=== PATIENT | male | born 1980 | race Caucasian/White ===

== ENCOUNTER 2022-07-04 09:28 | Emergency (ER) | payer BC, SELFPAY ==
--- NOTE | 2022-07-04 10:26 | EXP.UTC ---
Discharge Plan Disposition Patient Disposition: Home, Self-Care Condition: Good Prescriptions Prescriptions: New benzonatate [benzonatate] 100 mg capsule 100 mg PO TIDP PRN (Reason: Cough) Qty: 30 0RF methylprednisolone 4 mg Tablets,Dose Pack 4 mg PO DIRECTED Qty: 21 0RF cefdinir 300 mg capsule 300 mg PO BID Qty: 20 0RF mupirocin 2 % ointment 1 applic topical TID 7 Days Qty: 15 0RF Referrals Follow up/Referrals: Hari Pacheco [Primary Care Provider] - See instructions Activity Restrictions/Add. Instructions Additional Instructions/Restrictions: Drink plenty of fluids. Take tylenol or ibuprofen for pain or fever. Take the medications as directed. Follow up with your regular doctor. GO TO THE ER FOR ANY WORSENING SYMPTOMS Keep the wound clean and dry. Clinical Impressions Clinical Impression: Pharyngitis, Abrasion of face, Cervical lymphadenopathy Stand Alone Forms Stand Alone Forms: Work/School Release Discharge ED Provider: Dimitri Carvalho [facility] General Stated complaint: ao cinnamon grinder to side of face throat pain Time Seen by Provider: 07/04/22 10:25 History of Present Illness Provider Complaint: He states that he has had a sore throat for the past 3 days. He states that the has swollen lymph nodes on the right side of his neck that hurt when he turns his head. He has an abrasion on his face from an injury with a cinnamon grinder 5 days ago. Related Data Previous Rx's Medication Instructions Recorded benzonatate 100 mg capsule 100 mg PO TIDP PRN Cough #30 caps 07/04/22 cefdinir 300 mg capsule 300 mg PO BID #20 caps 07/04/22 methylprednisolone 4 mg tablets in 4 mg PO DIRECTED #21 tabs 07/04/22 a dose pack mupirocin 2 % topical ointment 1 applic topical TID 7 days #15 07/04/22 grams Allergies Allergy/AdvReac Type Severity Reaction Status Date / Time Penicillins Allergy Verified 07/04/22 10:49 [facility] Disclaimer: The information contained in this section may have been updated after the patient was seen, as this information can be updated by other users. Social History Smoking Status: Never smoker alcohol intake: never current occupational status: employed Travel in the last 8 weeks: None ROS Obtained: Yes All systems reviewed & no additional complaints except as documented Constitutional Constitutional: Reports chills and Reports fever(s) Eyes Eyes: Denies eye discharge ENT Ears, Nose, Mouth, and Throat: Reports as per HPI Cardiovascular Cardiovascular: Denies chest pain Respiratory Respiratory: Denies chest congestion and Reports cough Gastrointestinal Gastrointestingal: Reports nausea; Denies abdominal pain, constipation, cramping, diarrhea or vomiting Musculoskeletal Musculoskeletal: Denies arthralgias Integumentary/Breasts Skin/Breast: Reports as per HPI and Denies rash Neurologic Neurologic: Denies paresthesias Physical Exam General General appearance: alert and in no apparent distress Head Head exam: atraumatic, normocephalic and normal inspection Eye Eye exam: Present normal appearance, PERRL and EOMI ENT ENT exam: Present mucous membranes moist and normal external ear exam Expanded ENT Exam TM/Canal exam: Bilateral TM: erythema and bulging Nose exam: Absent sinus tenderness Mouth exam: Present normal external inspection; Absent drooling Teeth exam: Present normal inspection Throat exam: Present tonsillar erythema, tonsillomegaly and tonsillar exudate Neck Neck exam: Present normal inspection, full ROM and trachea midline; Absent tenderness, meningismus or lymphadenopathy Chest Chest inspection: Present normal inspection and symmetric chest wall rise; Absent tenderness Respiratory Respiratory exam: Present normal lung sounds bilaterally; Absent respiratory distress, wheezes or stridor Cardiovascular Cardiovascular exam: Present regular rate and normal rhythm; Absent systolic murmur or diastolic murmur Abdominal Exam
[2022-07-04 10:41] VITALS: BP 129/66; PULSE 110; RESP 18; TEMP 36.9; O2SAT 96; BMI 26.7
[2022-07-04 10:42] LABS: UTC Strep Screen (Rapid) Negative (Negative)
[2022-07-04 11:06] VITALS: BP 129/66; PULSE 110; RESP 18; TEMP 36.9
== END 2022-07-04 11:07 | disposition home or self-care (01) ==
PROVIDERS: Emergency Provider Nurse Practitioner Family; PCP Pediatrics
DX: J02.9 Acute pharyngitis, unspecified (principal); S00.81XA Abrasion of other part of head, initial encounter; R59.0 Localized enlarged lymph nodes
CPT/HCPCS: 87880; 99212; G0463